=== PATIENT | female | born 1940 | race Two or more races ===

== ENCOUNTER 2017-05-13 08:12 | Outpatient (CLI) | payer OTHER | END 2017-05-13 08:17 | disposition home or self-care (01) | LOC: SONOGRAMA 08:12 | DX: E04.1 Nontoxic single thyroid nodule (principal) ==

== ENCOUNTER → 2024-07-11 10:09 | Outpatient (CLI) | payer OTHER | END | disposition home or self-care (01) | LOC: NUCLEAR 10:09 | PROVIDERS: ATTEND Psychiatry & Neurology Clinical Neurophysiology | DX: G30.1 Alzheimer's disease with late onset (principal) | CPT/HCPCS: 78803; A9557 ==